=== PATIENT | male | born 1990 | race African-American/Black ===

== ENCOUNTER 2019-07-04 18:53 | Emergency (ER) | payer OTHER, SELFPAY ==
[2019-07-04 19:07] VITALS: BP 113/66; PULSE 55; RESP 16; TEMP 37; O2SAT 98; BMI 35.7
--- NOTE | 2019-07-04 19:11 | DI.RAD.S_ITS ---
PROCEDURE: XR FOOT RT MIN 3V INDICATIONS: pain in foot TECHNIQUE: 3 views of the foot were acquired. COMPARISON: None. FINDINGS: Bones: No fractures or dislocations. No suspicious bony lesions. Soft tissues: No tibiotalar joint effusion. Achilles tendon appears normal. IMPRESSION: No acute osseous abnormality. Dictated by: Lj Busby M.D. on 07/04/2019 at 19:49 Approved by: Lj Busby M.D. on 07/04/2019 at 19:49
[2019-07-04] MEDS: KETOROLAC 60 MG/2 ML VIAL IM (19:55)
--- NOTE | 2019-07-04 20:12 | ED.EXTPRO ---
HPI - Extremity Problem <SEMAJ Whelan - Last Filed: 07/04/19 20:56> General Chief complaint: Extremity Problem,Nontraumatic Stated complaint: RIGHT FOOT PAIN Time Seen by Provider: 07/04/19 19:37 Source: patient and family Mode of arrival: ambulatory Limitations: no limitations History of Present Illness HPI Narrative: The patient is a 28-year-old male nonsmoker denies medical history presents with his for chief complaint of atraumatic foot pain on his right foot that started about a week ago. He states he woke up with pain on the outside of his foot. He has not taken any Tylenol or Motrin. He does not know of any trauma. He denies any nausea vomiting diarrhea or fever. He denies any bruising or redness. He denies any previous injury to that foot or ankle. Related Data Previous Rx's Medication Instructions Recorded ketorolac 10 mg PO TID PRN #20 tab 07/04/19 Allergies Allergy/AdvReac Type Severity Reaction Status Date / Time No Known Drug Allergies Allergy Verified 07/04/19 19:10 Review of Systems <SEMAJ Whelan - Last Filed: 07/04/19 20:56> Review of Systems GENERAL: Denies chills, fatigue, malaise, fever, sweats. HEENT: Denies sinus pain, ear pain, sore throat, difficulty swallowing, dizziness. RESPIRATORY: Denies dyspnea, cough, wheezing, hemoptysis, sputum. CARDIOVASCULAR: Denies chest pain, palpitations, orthopnea, edema, GASTROINTESTINAL: Denies nausea, vomiting, abdominal pain, diarrhea, constipation, melena. : Denies dysuria, frequency, incontinence, hematuria, urinary retention. MUSCULOSKELETAL: See HPI SKIN: See HPI NEUROLOGIC: Denies weakness, headache, numbness, change in speech, confusion, seizures, incoordination. PSYCHIATRIC: No concerning psychosocial issues. 12 point review of systems is negative except for those stated above PFSH <SEMAJ Whelan - Last Filed: 07/04/19 20:56> Medical History (Updated 07/04/19 @ 20:49 by SEMAJ Whelan) Family history non-contributory (Acute) Medical history non-contributory (Acute) Social History Smoking Status: Never smoker Social History Smoking Status: Never smoker Exam <SEMAJ Whelan - Last Filed: 07/04/19 20:56> Narrative Exam Narrative: GENERAL: This is a well-nourished, well-developed patient, no acute distress HEAD: Atraumatic. Normocephalic. No temporal or scalp tenderness. EYES: Pupils equal round and reactive. Extraocular motions intact. No scleral icterus. No injection or drainage. ENT: Nose without bleeding, purulent drainage or septal hematoma. Throat without erythema, tonsillar hypertrophy or exudate. Uvula midline. Airway patent. CARDIOVASCULAR: Regular rate and rhythm without murmurs, gallops, or rubs. RESPIRATORY: No cough. No increased respiratory effort. No accessory muscle use. EXTREMITIES: Pain to palpation distal to right 5th toe. Full range of motion noted. Positive pedal pulses right foot. Capillary refill intact all toes right foot. No palpable deformity or swelling of right foot or toe BACK: Nontender without deformity or crepitance. No flank tenderness. NEURO: AOx3. SKIN: No erythema rash abrasion laceration or swelling noted on lateral aspect of right foot Initial Vital Signs Initial Vital Signs: Vital Signs Temperature 98.6 F 07/04/19 19:07 Pulse Rate 55 L 07/04/19 19:07 Respiratory Rate 16 07/04/19 19:07 Blood Pressure 113/66 07/04/19 19:07 Pulse Oximetry 98 07/04/19 19:07 <Olive Domínguez DO - Last Filed: 07/05/19 01:44> Initial Vital Signs Initial Vital Signs: Vital Signs Temperature 98.6 F 07/04/19 19:07 Pulse Rate 55 L 07/04/19 19:07 Respiratory Rate 16 07/04/19 19:07 Blood Pressure 113/66 07/04/19 19:07 Pulse Oximetry 98 07/04/19 19:07 Procedures <SEMAJ Whelan - Last Filed: 07/04/19 20:56> Orthopedic Splinting/Casting Injury #1: Side: right Lower Extremity Injury Location: foot Lower Extremity Immobilizer: post-op shoe Post splinting neuro exam: intact Post splinting vascular exam: intact Placed by: Nursing Course <SEMAJ Whelan - Last Filed: 07/04/19 20:56> Orders Ordered: ED Orders 07/04/19 19:11 XR foot RT min 3V Stat Discontinued Medications Ketorolac Tromethamine (Toradol) 60 mg IM NOW ONE Stop: 07/04/19 19:51 Last Admin: 07/04/19 19:55 Dose: 60 mg Vital Signs - 8 hr 07/04/19 19:07 Temperature 98.6 F Pulse Rate 55 L Respiratory Rate 16 Blood Pressure 113/66 Pulse Oximetry 98 <Olive Domínguez DO - Last Filed: 07/05/19 01:44> Orders Ordered: ED Orders 07/04/19 19:11 XR foot RT min 3V Stat Discontinued Medications Ketorolac Tromethamine (Toradol) 60 mg IM NOW ONE Stop: 07/04/19 19:51 Last Admin: 07/04/19 19:55 Dose: 60 mg Vital Signs - 8 hr 07/04/19 19:07 Temperature 98.6 F Pulse Rate 55 L Respiratory Rate 16 Blood Pressure 113/66 Pulse Oximetry 98 MDM - Extremity (Nontraumatic) <SEMAJ Whelan - Last Filed: 07/04/19 20:56> Imaging Data Foot x-ray: Radiologist's impression: [place] [address] XRay Report Signed Patient: IVAN RIGGS LMR#: [id number] : 1990Acct:[id number] Age/Sex: 28 / MDate of Service: 07/04/19 Loc: ED Accession Number: [id number] Procedure: XR foot RT min 3V Ordering Provider: Olive Domínguez D.O. PROCEDURE: XR FOOT RT MIN 3V INDICATIONS: pain in foot TECHNIQUE: 3 views of the foot were acquired. COMPARISON: None. FINDINGS: Bones: No fractures or dislocations. No suspicious bony lesions. Soft tissues: No tibiotalar joint effusion. Achilles tendon appears normal. IMPRESSION: No acute osseous abnormality. Dictated by: Lj Busby M.D. on 07/04/2019 at 19:49 Approved by: Lj Busby M.D. on 07/04/2019 at 19:49 Discharge Plan Departure Patient Disposition: Home Clinical Impression: Acute foot pain Qualifiers: Laterality: right Qualified Code(s): M79.671 - Pain in right foot Discharge Date/Time: 07/04/19 21:02 Interventions: ED Discharge Assessment Last Done: 07/04/19 21:01 Instructions: How To Perform RICE (Rest, Ice, Compress, Elevate), DI for Foot Pain Activity Restrictions/Additional Instructions: Your foot x-ray came back normal. Please try rest ice compression elevation as well as [id number] meds as needed and able. I have given you a prescription of Toradol. Do not combine this with Aleve ibuprofen or any other NSAIDs. Please follow up with primary care provider. I have provided you information for the [facility] enterprise resource analyst who can help you identify primary care provider. Please come back to the emergency department for any acute concerns such as concern of stroke, heart attack etc Prescriptions: New ketorolac 10 mg tablet 10 mg PO TID PRN (Reason: pain) Qty: 20 RF: 0 Referrals: [facility] [Outside] Stand Alone Forms: Work Release Note <Olive Domínguez DO - Last Filed: 07/05/19 01:44> Cosign ED Attending Elan Attestation: I was immediately available in the department for consultation. Documentation has been reviewed. I agree with assessment and plan.
--- NOTE | 2019-07-04 20:16 | ED_ITS ---
HPI - Extremity Problem <SEMAJ Whelan - Last Filed: 07/04/19 20:56> General Chief complaint: Extremity Problem,Nontraumatic Stated complaint: RIGHT FOOT PAIN Time Seen by Provider: 07/04/19 19:37 Source: patient and family Mode of arrival: ambulatory Limitations: no limitations History of Present Illness HPI Narrative: The patient is a 28-year-old male nonsmoker denies medical his tory presents with his for chief complaint of atraumatic foot pain on his right foot that started about a week ago. He states he woke up with pain on the outside of his foot. He has not taken any Tylenol or Motrin. He does not know of any trauma. He denies any nausea vomiting diarrhea or fever. He denies any bruising or redness. He denies any previous injury to that foot or ankle. Related Data Previous Rx's Medication Instructions Recorded ketorolac 10 mg PO TID PRN #20 tab 07/04/19 Allergies Allergy/AdvReac Type Severity Reaction Status Date / Time No Known Drug Allergies Allergy Verified 07/04/19 19:10 Review of Systems <SEMAJ Whelan - Last Filed: 07/04/19 20:56> Review of Systems GENERAL: Denies chills, fatigue, malaise, fever, sweats. HEENT: Denies sinus pain, ear pain, sore throat, difficulty swallowing, dizziness. RESPIRATORY: Denies dyspnea, cough, wheezing, hemoptysis, sputum. CARDIOVASCULAR: Denies chest pain, palpitations, orthopnea, edema, GASTROINTESTINAL: Denies nausea, vomiting, abdominal pain, diarrhea, constipation, melena. : Denies dysuria, frequency, incontinence, hematuria, urinary retention. MUSCULOSKELETAL: See HPI SKIN: See HPI NEUROLOGIC: Denies weakness, headache, numbness, change in speech, confusion, seizures, incoordination. PSYCHIATRIC: No concerning psychosocial issues. 12 point review of systems is negative except for those stated above PFSH <SEMAJ Whelan - Last Filed: 07/04/19 20:56> Medical History (Updated 07/04/19 @ 20:49 by SEMAJ Whelan) Family history non-contributory (Acute) Medical history non-contributory (Acute) Social History Smoking Status: Never smoker Social History Smoking Status: Never smoker Exam <SEMAJ Whelan - Last Filed: 07/04/19 20:56> Narrative Exam Narrative: GENERAL: This is a well-nourished, well-developed patient, no ac [place] distress HEAD: Atraumatic. Normocephalic. No temporal or scalp tenderness. EYES: Pupils equal round and reactive. Extraocular motions intact. No scleral icterus. No injection or drainage. ENT: Nose without bleeding, purulent drainage or septal hematoma. Throat without erythema, tonsillar hypertrophy or exudate. Uvula midline. Airway patent. CARDIOVASCULAR: Regular rate and rhythm without murmurs, gallops, or rubs. RESPIRATORY: No cough. No increased respiratory effort. No accessory muscle use. EXTREMITIES: Pain to palpation distal to right 5th toe. Full range of motion noted. Positive pedal pulses right foot. Capillary refill intact all toes right foot. No palpable deformity or swelling of right foot or toe BACK: Nontender without deformity or crepitance. No flank tenderness. NEURO: AOx3. SKIN: No erythema rash abrasion laceration or swelling noted on lateral aspect of right foot Initial Vital Signs Initial Vital Signs: Vital Signs Temperature 98.6 F 07/04/19 19:07 Pulse Rate 55 L 07/04/19 19:07 Respiratory Rate 16 07/04/19 19:07 Blood Pressure 113/66 07/04/19 19:07 Pulse Oximetry 98 07/04/19 19:07 <Olive Domínguez DO - Last Filed: 07/05/19 01:44> Initial Vital Signs Initial Vital Signs: Vital Signs Temperature 98.6 F 07/04/19 19:07 Pulse Rate 55 L 07/04/19 19:07 Respiratory Rate 16 07/04/19 19:07 Blood Pressure 113/66 07/04/19 19:07 Pulse Oximetry 98 07/04/19 19:07 Procedures <SEMAJ Whelan - Last Filed: 07/04/19 20:56> Orthopedic Splinting/Casting Injury #1: Side: right Lower Extremity Injury Location: foot Lower Extremity Immobilizer: post-op shoe Post splinting neuro exam: intact Post splinting vascular exam: intact Placed by: Nursing Course <SEMAJ Whelan - Last Filed: 07/04/19 20:56> Orders Ordered: ED Orders 08/15/19 19:11 XR foot RT min 3V Stat Discontinued Medications Ketorolac Tromethamine (Toradol) 60 mg IM NOW ONE Stop: 07/04/19 19:51 Last Admin: 07/04/19 19:55 Dose: 60 mg Vital Signs - 8 hr 07/04/19 19:07 Temperature 98.6 F Pulse Rate 55 L Respiratory Rate 16 Blood Pressure 113/66 Pulse Oximetry 98 <Olive Domínguez DO - Last Filed: 07/05/19 01:44> Orders Ordered: ED Orders 07/04/19 19:11 XR foot RT min 3V Stat Discontinued Medications Ketorolac Tromethamine (Toradol) 60 mg IM NOW ONE Stop: 07/04/19 19:51 Last Admin: 07/04/19 19:55 Dose: 60 mg Vital Signs - 8 hr 07/04/19 19:07 Temperature 98.6 F Pulse Rate 55 L Respiratory Rate 16 Blood Pressure 113/66 Pulse Oximetry 98 MDM - Extremity (Nontraumatic) <SEMAJ Whelan - Last Filed: 07/04/19 20:56> Imaging Data Foot x-ray: Radiologist's impression: [address] [address] XRay Report Signed Patient: IVAN RIGGS LMR#: [id number] : 1990Acct:[id number] Age/Sex: 28 / MDate of Service: 07/04/19 Loc: ED Accession Number: [id number] Procedure: XR foot RT min 3V Ordering Provider: Olive Domínguez D.O. PROCEDURE: XR FOOT RT MIN 3V INDICATIONS: pain in foot TECHNIQUE: 3 views of the foot were acquired. COMPARISON: None. FINDINGS: Bones: No fractures or dislocations. No suspicious bony lesions. Soft tissues: No tibiotalar joint effusion. Achilles tendon appears normal. IMPRESSION: No acute osseous abnormality. Dictated by: Lj Busby M.D. on 07/04/2019 at 19:49 Approved by: Lj Busby M.D. on 07/04/2019 at 19:49 Discharge Plan Departure Patient Disposition: Home Clinical Impression: Acute foot pain Qualifiers: Laterality: right Qualified Code(s): M79.671 - Pain in right foot Discharge Date/Time: 07/04/19 21:02 Interventions: ED Discharge Assessment Last Done: 07/04/19 21:01 Instructions: How To Perform RICE (Rest, Ice, Compress, Elevate), DI for Foot Pain Activity Restrictions/Additional Instructions: Your foot x-ray came back normal. Please try rest ice compression elevation as well as [id number] meds as needed and able. I have given you a prescription of Toradol. Do not combine this with Aleve ibuprofen or any other NSAIDs. Please follow up with primary care provider. I have provided you information for the [facility] human resources mgr who can help you identify primary care provider. Please come back to the emergency department for any acute concerns such as concern of stroke, heart attack etc Prescriptions: New ketorolac 10 mg tablet 10 mg PO TID PRN (Reason: pain) Qty: 20 RF: 0 Referrals: [facility] [Outside] Stand Alone Forms: Work Release Note <Olive Domínguez DO - Last Filed: 07/05/19 01:44> Cosign ED Attending Joseature Attestation: I was immediately available in the department for consultation. Documentation has been reviewed. I agree with assessment and plan.
== END 2019-07-04 21:02 | disposition home or self-care (01) ==
PROVIDERS: Emergency Provider Nurse Practitioner Family
DX: M79.671 Pain in right foot (principal)
CPT/HCPCS: 29550; 73630; 96372; 99283; J1885